=== PATIENT | male | born 1955 | race Caucasian/White ===

== ENCOUNTER 2017-01-13 10:06 | Day surgery (SDC) | payer OTHER ==
[2017-01-10 12:41] VITALS: BMI 24.8
[2017-01-13] MEDS ORDERED: PROPOFOL 20 ML ONE (11:10)
[2017-01-13] MEDS ORDERED: MIDAZOLAM HCL 2 MG/2 ML SINGLE DOSE VIAL ONE (11:11)
[2017-01-13] MEDS ORDERED: BUPIVACAINE HCL/PF 2.5 MG/ML - 30 ML VIAL IJ ONE (11:24)
[2017-01-13] MEDS ORDERED: ONDANSETRON 4 MG/2 ML VIAL ONE (11:39)
[2017-01-13] MEDS ORDERED: DEXAMETHASONE SOD PHOSPHATE 4 MG/1 ML VIAL ONE (11:39)
[2017-01-13] MEDS ORDERED: ceFAZolin SODIUM 1 GM VIAL ONE (11:39)
[2017-01-13] MEDS ORDERED: KETOROLAC TROMETHAMINE 30 MG/1 ML VIAL ONE (12:17)
[2017-01-13] MEDS ORDERED: LACTATED RINGERS SOLUTION 1,000 ML IV SCH (13:00)
--- NOTE | 2017-01-13 14:31 | OP ---
DATE OF OPERATION: 01/13/2017 SURGEON: Harinder Del Rosario MD PREOPERATIVE DIAGNOSIS: Left knee unstable osteochondral lesion. POSTOPERATIVE DIAGNOSIS: Left knee unstable osteochondral lesion. PROCEDURE: Left knee arthroscopy with excision of loose body, debridement of osteochondral lesion, microfracture. ANESTHESIA: General. POSTOPERATIVE CONDITION: Stable. COMPLICATIONS: None. SPECIMENS: Osteochondral fragment x1. THREAD MARKER: ANDERSON Rodriges INDICATIONS: This is a pleasant gentleman who has been suffering from mechanical symptoms in the knee with the knee giving way. He had increased pain compared to his baseline pain, and MRI demonstrated a loose osteochondral lesion. Treatment options including nonoperative versus operative management were discussed. Operative risks were reviewed in detail including bleeding, infection, neurovascular injury, need for further surgery, postoperative pain or stiffness, and progressive osteoarthritis. We discussed medical risks of surgery such as heart attack, stroke, DVT, PE, and . We discussed that this case was being performed to excise the osteochondral lesion. We do still expect that there will be osteoarthritis through the knee, and that low-level chronic pain will still be there. The patient voiced understanding and elected to proceed. DESCRIPTION OF PROCEDURE: The patient was brought to the operating room where general anesthesia was administered. The left lower extremity was then prepped and draped in the usual sterile fashion. A preoperative dose of antibiotics was given, and the usual time-out procedure was performed. At this point, a standard anterolateral portal was marked and then established using an 11-blade. The arthroscope was passed into the knee. Examination of the patellofemoral joint demonstrated some diffuse mild to moderate articular cartilage wear. Passing the arthroscope down to the notch demonstrated the ACL was intact as well as the PCL. The arthroscope was now into the medial compartment. Here, mild osteoarthritis changes were noted at the femoral and tibial surfaces. The meniscus was examined, and while it was frayed, there was no tearing noted. Arthroscope was now passed into the lateral compartment. Here, the meniscus was inspected and found to be intact. It was probed, as well. The tibial surface had smooth albeit slightly frayed articular cartilage. The femoral surface demonstrated a large osteochondral lesion on the femoral side. The fragment appeared quite loose. Touching it with a probe dislodged the fragment and then it floated around the knee into the posterior aspect of the notch. On an attempt to grasp it, the fragment floated into the posterior aspect of the knee. The arthroscope was passed into the posterior medial compartment. Initially, suction as well the shaver was used to try to extract the fragment. However, there in the posterior medial gutter. Spinal needle was used to localize a posterior medial portal. An incision was made through the skin, blunt spreading with the use of the clamps down to the level of the capsule. The clamp was then penetrated through the capsule and then used to retrieve out the osteochondral fragment. Attention was now turned back to the lesion itself. Using a 4.5-mm shaver, the fibrinous debris within the lesion was removed. This was down to a level of bleeding bone. The cartilage at the edge was smoothed to provide for a smooth transition. The lesion itself was punctured with two microfracture awl impactions. At this point, the knee was once again examined to ensure that no further loose debris. The excess fluid was withdrawn from the joint. The portals were retrieved, were sutured using 3-0 Vicryl and 3-0 nylon. Sterile dressings were placed. The patient was extubated and transferred to the recovery room in stable condition. Nenita [id number]
[2017-01-13 14:33] VITALS: PULSE 75; TEMP 97.7
[2017-01-13] MEDS ORDERED: oxyCODONE HCL 5 MG TABLET PO ONE (15:05)
[2017-01-13 15:48] VITALS: BP 123/81
--- NOTE | 2017-01-17 15:19 | PATH ---
Surgical Pathology Report Patient Name: NAJMA GONZALEZ Med. Rec. #: [id number] /Age/Gender: 1955 (Age: 61) / M Account: [id number] Location: [facility] Taken: 01/13/2017 Received: 01/13/2017 Reported: 01/17/2017 Physicians: Harinder Del Rosario M.D. Specimen(s) Received LEFT KNEE LOOSE BODY Clinical History Left knee unstable osteochondral lesion Final Diagnosis LOOSE BODY, LEFT KNEE, EXCISION: LOOSE BODY. Electronically Signed Kina Lee M.D. Gross Description Received in formalin labeled "left knee loose body," is a 0.9 x 0.8 x 0.5 cm gates-yellow, calcified nodule. The specimen is sectioned and entirely submitted in one cassette, following decalcification. 01/14/201701/14/2017
== END 2017-01-13 15:40 | disposition home or self-care (01) ==
LOC: FASU 10:06
PROVIDERS: ATTEND Orthopaedic Surgery Sports Medicine
PROC: 0SCD4ZZ Extirpation of Matter from Left Knee Joint, Percutaneous Endoscopic Approach (ICD-10-PCS; 2017-01-13)
PROC: 0SBD4ZZ Excision of Left Knee Joint, Percutaneous Endoscopic Approach (ICD-10-PCS; principal; 2017-01-13 11:49)
DX: M23.42 Loose body in knee, left knee (principal); M95.8 Other specified acquired deformities of musculoskeletal system
CPT/HCPCS: 88304-TC; 94760